=== PATIENT | male | born 1950 | race African-American/Black ===

== ENCOUNTER → 2018-07-04 | Outpatient (CLI) | payer MEDICARE, OTHER ==
--- NOTE | 2018-07-04 12:02 | RAD ---
EXAM: Renal sonogram. HISTORY: Chronic kidney disease. Renal cysts. TECHNIQUE: Sonographic imaging of the kidneys and bladder was performed. COMPARISON: 01/24/2015. FINDINGS: The right kidney measures 12.3 cm uleh-yf-zjje. The left kidney measures 9.6 cm ofka-[id number]. There are bilateral renal cysts, the largest of which on the right measures 6.7 cm the largest of which on the left measures 5.7 cm. No solid renal lesion is seen. The renal parenchyma is echogenic. The bladder volume is 112 cc. The ureteral jets are not seen. IMPRESSION: 1. Bilateral renal cysts. 2. Echogenic renal parenchyma. This can be seen with medical renal disease. Electronically signed by: Rachael Gates MD (07/04/2018 11:59 AM) [facility]
== END | disposition home or self-care (01) ==
LOC: US 10:34
PROVIDERS: ATTEND Internal Medicine Nephrology
DX: I12.9 Hypertensive chronic kidney disease with stage 1 through stage 4 chronic kidney disease, or unspecified chronic kidney disease (principal); N18.4 Chronic kidney disease, stage 4 (severe); N28.1 Cyst of kidney, acquired
CPT/HCPCS: 76770

== ENCOUNTER → 2018-11-08 | Outpatient (CLI) | payer MEDICARE, OTHER ==
--- NOTE | 2018-11-08 11:01 | CARD ---
MR#: [id number] Date of Study: 11/08/2018 Ordering Physician: JOSEF RUTH, Referring Physician: JOSEF RUTH Tech: Margo Delatorre RDCS APPROVED REPORT EXAM: Two-dimensional and M-mode echocardiogram with Doppler and color Doppler. Other Information Quality : Good INDICATION Murmur 2D DIMENSIONS RVDd2.7 (2.9-3.5cm)Left Atrium(2D)3.7 (1.6-4.0cm) IVSd1.0 (0.7-1.1cm)Aortic Root(2D)3.1 (2.0-3.7cm) LVDd6.6 (3.9-5.9cm)LVOT Diameter2.2 (1.8-2.4cm) PWd1.0 (0.7-1.1cm)LVDs5.1 (2.5-4.0cm) FS (%) 23.2 %SV102.5 ml LVEF(%)45.5 (>50%) Aortic Valve AoV Peak Mahesh.240.9cm/sAoV VTI58.7cm AO Peak GR.23.2mmHgLVOT Peak Mahesh.150.1cm/s LVOT VTI 34.66cmAO Mean GR.14mmHg MELODY (VMAX)2.17ee3VVP (VTI)2.26cm2 Mitral Valve MV E Dlybawtf880.0cm/sMV DECEL DRSX474el MV A Kkqflpvp555.4cm/sE/A Ratio1.1 Tricuspid Valve TR P. Xcnmdjfq681jh/sRAP NNGERTRQ3bdBw TR Peak Gr.31ovXwFNUK33rdUh Pulmonary Vein S1 Fbbvemgl686.4cm/sD2 Qqtqpqao61.9cm/s LEFT VENTRICLE The Left Ventricle is moderately dilated. There is normal left ventricular wall thickness. Left ventr icle systolic function is mildly impaired. The Ejection Fraction is 40-45%. There is mild global hypo kinesis of the left ventricle. Cannot rule out non-compaction cardiomyopathy. Transmitral Doppler yesica w pattern is Grade I-abnormal relaxation pattern. RIGHT VENTRICLE The right ventricle is normal size. The right ventricular systolic function is normal. ATRIA The left atrium size is normal. The right atrium size is normal. The interatrial septum is intact wit h no evidence for an atrial septal defect or patent foramen ovale as noted on 2-D or Doppler imaging. AORTIC VALVE The aortic valve is calcified and displays decreased opening. Doppler and Color Flow revealed trace a ortic regurgitation. Calculated aortic valve area is 2.3 cm2 with maximum pressure gradient of 23 mmH g and mean pressure gradient of 14 mmHg. Doppler and color-flow analysis revealed mild aortic stenosi s. MITRAL VALVE The mitral valve is calcified but opens well. There is no evidence of mitral valve prolapse. There is no mitral valve stenosis. Doppler and Color-flow revealed trace mitral regurgitation. TRICUSPID VALVE The tricuspid valve is normal in structure and function. Doppler and Color Flow revealed moderate, ec centric tricuspid regurgitation. There is severe pulmonary hypertension. The PA pressure was estimate d at 73 mmHg. There is no tricuspid valve stenosis. PULMONIC VALVE Doppler and Color Flow revealed trace to mild pulmonic valvular regurgitation. There is no pulmonic v alvular stenosis. GREAT VESSELS The aortic root is normal in size. The ascending aorta is normal in size. The IVC is dilated. PERICARDIAL EFFUSION There is no evidence of significant pericardial effusion. Critical Notification Critical Value: No <Conclusion> Left ventricle systolic function is mildly impaired. The Ejection Fraction is 40-45%. There is mild global hypokinesis of the left ventricle. Cannot rule out non-compaction cardiomyopathy . Calculated aortic valve area is 2.3 cm2 with maximum pressure gradient of 23 mmHg and mean pressure g radient of 14 mmHg. Doppler and color-flow analysis revealed mild aortic stenosis. Doppler and Color Flow revealed moderate, eccentric tricuspid regurgitation. There is severe pulmonar y hypertension. The PA pressure was estimated at 73 mmHg. Signed by : Robin Wang, Electronically Approved : 11/08/2018 11:00:07
== END | disposition home or self-care (01) ==
LOC: ECHO 08:59
PROVIDERS: ATTEND Internal Medicine Nephrology
DX: I08.8 Other rheumatic multiple valve diseases (principal); I42.9 Cardiomyopathy, unspecified; I27.20 Pulmonary hypertension, unspecified; R00.8 Other abnormalities of heart beat
CPT/HCPCS: 93306